=== PATIENT | female | born 1970 | race Caucasian/White ===

== ENCOUNTER 2018-10-07 08:48 | Emergency (ER) | payer SELFPAY ==
[2018-10-07] MEDS ORDERED: PREDNISONE 20 MG TAB PO ONE (08:56)
--- NOTE | 2018-10-07 08:56 | Emergency Department Record ---
History of Present Illness - General Chief complaint: Rash Stated complaint: RASH Time Seen by Provider: 10/07/18 08:51 Source: Patient Mode of Arrival: Ambulatory Limitations: No limitations - History of Present Illness Initial comments: 47 yo female presents with a rash. The rash is an itchy rash on both arms. No known exposures. No other symptoms. No cough, shortness of breath, fever. She does not know of any contacts to plants, new foods, detergents or other possible causes. MD complaint: Rash -: Days(s) (2) Location: [facility] Severity: Moderate Quality: Other (itches) Consistency: Constant Improves with: None Worsens with: None Context: None Associated symptoms: Denies other symptoms Treatments Prior to Arrival: Benadryl - Related Data Home Medications Medication Instructions Recorded Confirmed Last Taken Hydrochlorothiazide [Hctz 12.5MG] 12.5 mg PO DAILY 10/07/18 10/07/18 10/07/18 Losartan Potassium [Cozaar] 50 mg PO DAILY 10/07/18 10/07/18 10/07/18 Previous Rx's Medication Instructions Recorded Prednisone [Prednisone 20Mg] 20 mg PO BID #14 tab 10/07/18 Allergies Allergy/AdvReac Type Severity Reaction Status Date / Time Penicillins Allergy HIVES Verified 10/07/18 08:54 Review of Systems Constitutional: Denies: Chills, Fever, Weakness Eyes: Denies: Eye discharge, Eye pain ENT: Denies: Congestion, Throat pain Respiratory: Denies: Cough, Dyspnea, Wheezes Cardiovascular: Denies: Chest pain, Edema Endocrine: Denies: Fatigue Gastrointestinal: Denies: Abdominal pain, Diarrhea, Nausea, Vomiting Genitourinary: Denies: Dysuria, Urgency Musculoskeletal: Denies: Arthralgia, Back pain, Joint swelling, Myalgia Skin: Reports: As per HPI, Change in color, Rash. Denies: Bruising Neurological: Denies: Numbness, Tingling, Weakness Psychiatric: Denies: Anxiety Hematological/Lymphatic: Denies: Easy bleeding, Easy bruising Physical Exam - General General Appearance: Alert, Oriented x3, Cooperative, No acute distress Limitations: No limitations - Head Head exam: Atraumatic, Normal inspection - Eye Eye exam: Normal appearance. negative: Conjunctival injection, Periorbital swelling, Scleral icterus - ENT ENT exam: Normal exam, Mucous membranes moist Ear exam: Normal external inspection Nasal Exam: Normal inspection Mouth exam: Normal external inspection Throat exam: Normal inspection - Neck Neck exam: Normal inspection, Full ROM. negative: Lymphadenopathy, Tenderness - Respiratory Respiratory exam: Normal lung sounds bilaterally. negative: Wheezes - Cardiovascular Cardiovascular Exam: Regular rate, Normal rhythm, Normal heart sounds - Extremities Extremities exam: Full ROM, Other (Rash). negative: Normal inspection, Calf tenderness, Joint swelling, Normal capillary refill, Pedal edema, Tenderness Image of Full Body: 1 - bilateral forearm rash consistent with a contact dermatitis without compli cation - Back Back exam: Denies: Normal inspection (two small area of rash upper back/neck junction) - Neurological Neurological exam: Alert, Oriented X3 - Skin Skin exam: Erythema, Rash. negative: Petechiae Type of lesion: negative: Abscess Distribution of rash: RUE, LUE Description of rash: Confluent, Macular, Papular Course - Reevaluation(s) Reevaluation #1: 10/07/18 08:58 The rash is consistent with a contact dermatitis without complication Disposition Disposition: Discharge Clinical Impression: Rash Contact dermatitis Qualifiers: Contact dermatitis type: irritant Contact dermatitis trigger: unspecified trigger Qualified Code(s): L24.9 - Irritant contact dermatitis, unspecified cause Disposition: Home, Self-Care Condition: (1) Good Instructions: Contact Dermatitis (ED) Additional Instructions: Call your doctor for the next available follow up appointment when you return to [place] if the rash is not gone Return to the ER for a recheck if worse, any new concerns or questions Take the prescriptions provided as directed Prescriptions: Prednisone [Prednisone 20Mg] 20 mg PO BID #14 tab Forms: Patient Portal Access Time of Disposition: 08:59 Quality - Quality Measures Quality Measures: N/A - Blood Pressure Screening Does Patient Have Any of the Following: Active Dx of HTN Blood Pressure Classification: Hypertensive Reading Systolic Measurement: 172 Diastolic Measurement: 101 Screening for High Blood Pressure: Patient Exclusion, Hx of HTN [[id number]]
== END 2018-10-07 09:12 | disposition home or self-care (01) ==
LOC: ER 08:48
DX: L24.9 Irritant contact dermatitis, unspecified cause (principal)
CPT/HCPCS: 99283; J7512